=== PATIENT | male | born 1960 | race Caucasian/White ===

== ENCOUNTER 2021-05-25 08:12 | Emergency (ER) | payer OTHER, SELFPAY ==
[2021-05-25 08:13] VITALS: BP 134/69; BP 145/88; PULSE 68; PULSE 75; RESP 16; RESP 20; TEMP 36.8; O2SAT 100; BMI 27.4; BMI 30.8
--- NOTE | 2021-05-25 08:29 | [facility].EDGENADL ---
ED Disposition Clinical Impression: Lumbar disc herniation, Lumbar radiculopathy Disposition: Home, Self-Care Condition on Discharge: Good Instructions: DI for Herniated Disc, DI for Lumbar Radiculopathy Additional Instructions: Continue prednisone. Percocet as needed for pain. Follow-up with your primary care doctor when you return home, take your MRI disc with you. Additional instructions for CONTROLLED SUBSTANCES: You have been prescribed a medication that is a controlled substance. Controlled substances include pain medications known as opiates and sedative nerve medications known as benzodiazepines. Tramadol, fioricet, and gabapentin are also controlled substances. Some common opiates include: Codeine (such as Tylenol #3) Hydrocodone (Vicodin, Lortab, Lorcet, Galt) Oxycodone (Percocet, Percodan, Oxycodone, Oxy IR) Some common benzodiazepines include: Diazepam (Valium) Lorazepam (Ativan) Alprazolam (Xanax) Clonazepam (Klonopin) Oxazepam (Serax) All of these controlled substances are highly addictive and frequently abused. Misuse can and frequently does lead to addiction as well as overdose and . Medication should be stored in a locked cabinet or other secure storage unit. Do not store the medication in a motor vehicle. Short term supplies, 3 days or less, are prescribed because of the highly addictive nature of the medication. Any of the controlled substance medication NOT taken should be disposed of properly and NOT SAVED. The recommended method of disposing of unused medications is: Place the medicines in a sealable plastic bag. If the medicine is a solid, crush it or add water to dissolve it. Add something undesirable (cat litter, coffee grounds, etc.) Dispose of sealed bag in household trash Do not flush or pour unused medicines down a sink or drain. Controlled substances should not be shared, given away or sold. Because of the addictive nature and frequent abuse, these medications are sometimes stolen. These medications should be kept in a safe place where they cannot be stolen. Do not keep them in your car or purse. Lost or stolen prescriptions for controlled substances WILL NOT BE REFILLED in this emergency department, regardless of whether a police report was filed. Prescriptions: Oxycodone HCl/Acetaminophen [Percocet 5/325mg tablet] 1 tab PO Q6HP PRN #10 tablet PRN Reason: Moderate To Severe Pain Transmission Status: [facility] to [facility] Referrals: Provider,Referral, [Primary Care Provider] - - Critical Care Critical Care Time: No Attestation: On , the high probability of a clinically significant, sudden or life threatening deterioration of the following system(s) required my full and direct attention, intervention and personal management. The time I documented below is in addition to time spent performing reported procedures but includes the following listed in this critical care notation. Medical Decision Making - Nathen Inquiry Pt receiving controlled substance: Yes Nathen was queried for this patient: Yes Risks and benefits of using a controlled substance: were discussed with pt by me Vital Signs: 05/25/21 08:13 Temperature 98.3 F Temperature Source Oral Pulse Rate [Right Radial] 68 Pulse Rate [Right] 75 Respiratory Rate 16 Blood Pressure [Right Arm] 145/88 H Blood Pressure Mean [Right Arm] 107 Blood Pressure Source [Right Arm] Automatic Cuff Blood Pressure Position [Right Arm] Sitting 02 Sat by Pulse Oximetry 100 Oxygen Delivery Method Room Air - Lab Data Lab Results 05/25/21 09:23: WBC 9.9, RBC 4.25 L, Hgb 15.1, Hct 43.5, MCV 102.3 H, MCH 35.5 H, MCHC 34.7, RDW 15.4, Plt Count 193, MPV 8.9, Neut % (Auto) 91.1 H, Lymph % (Auto) 4.5 L, [place] % (Auto) 3.9, Eos % (Auto) 0.2, Baso % (Auto) 0.2, Neut # (Auto) 9.0 H, Lymph # (Auto) 0.5 L, [place] # (Auto) 0.4, Eos # (Auto) 0.0, Baso # (Auto) 0.0, Total Counted 100, Neutrophils % (Manu
--- NOTE | 2021-05-25 09:08 | PC.NURSE ---
Spoke with MRI staff. They advised they will be down to get pt around 1030 to have a MRI of the lumbar spine with and without contrast per Dr Roland request.
[2021-05-25 09:38] LABS: Basophils % 0.2 % (0.1-2.0); Chloride 104 mmol/L (98-107); Eosinophils % 0.2 % (0.1-12.0); Hematocrit 43.5 % (42.0-52.0); Hemoglobin 15.1 g/dL (14.1-18.0); Lymphocytes # 0.5 K/mm3 (0.7-4.5); Lymphocytes % 4.5 % (10-50); Mean Corpuscular HGB Conc 34.7 g/dL (31.8-35.4); Mean Corpuscular Hemoglobin 35.5 pg (27.0-31.2); Mean Corpuscular Volume 102.3 fl (80-94); Mean Platelet Volume 8.9 fl (7.4-10.4); Monocytes # 0.4 K/mm3 (0.1-1.0); Monocytes % 3.9 % (1.7-9.3); Neutrophils % 91.1 % (37.0-80.0); Platelet Count 193 K/mm3 (142-424); Red Blood Count 4.25 M/mm3 (4.60-6.20); Red Cell Distribution Width 15.4 % (11.5-17.5); Sodium 138 mmol/L (136-145); White Blood Count 9.9 K/mm3 (4.8-10.8)
[2021-05-25 09:39] LABS: MANUAL DIFFERENTIAL MANUAL DIFFERENTIAL (MANUAL DIFF); Potassium 3.9 mmoL/L (3.5-5.1)
[2021-05-25 09:42] LABS: Anion Gap 13.9 mEq/L (5-15); Blood Urea Nitrogen 11 mg/dl (9-20); Calcium 9.3 mg/dl (8.4-10.2); Carbon Dioxide 24 mmol/L (22.0-30.0); Creatinine Clearance Estimated 145 mL/min (50-200); Estimated Glomerular Filt Rate 138 ml/min (>60); GFR (African American) 167 ML/MIN (>60); Glucose 188 mg/dl (74-100)
[2021-05-25 09:47] LABS: C-Reactive Protein 2.9 mg/L (0-4)
--- NOTE | 2021-05-25 09:47 | MR_ITS ---
PROCEDURE: MR LUMBAR SPINE WO/W CON CLINICAL INDICATION: SCIATICA RT LEG Right leg pain and weakness, fever COMPARISON: No exams were available for comparison TECHNIQUE: Standard multiplanar multiecho sequences are performed without contrast. 3-D MIP and myelographic images are also rendered and reviewed FINDINGS: The normal alignment. The spinal cord ends at the L1-L2 level. L1-L2: Unremarkable. L2-L3: Unremarkable. L3-L4: Unremarkable. L4-5: The there is a medium sized right paracentral/medial foraminal disc herniation with superior extrusion. The herniated disc is extruded superiorly approximately 1.9 cm cephalad to the disc space. There is moderate compression upon the right L4 nerve root and mild compression upon the right L5 nerve root. There is severe right lateral recess narrowing and severe right-sided foraminal narrowing from the extruded herniated disc. There is mild bulging disc at L4-5 with facet and ligamentum hypertrophy with borderline canal stenosis. There is 3 mm anterolisthesis of L4 on L5 L5-S1: Minimal bulging disc. No evidence of epidural abscess. No abnormal enhancement apparent. IMPRESSION: 1. Medium sized right paracentral/medial foraminal disc herniation with superior extrusion the at L4-5. The herniated disc is extruded superiorly approximately 1.9 cm cephalad to the disc space. There is moderate compression upon the right L4 nerve root and mild compression upon the right L5 nerve root. There is severe right lateral recess narrowing and severe right-sided foraminal narrowing from the extruded herniated disc. There is mild bulging disc at L4-5 with facet and ligamentum hypertrophy with borderline canal stenosis. 2. No evidence of epidural abscess Dictated by: Yang Knott MD 05/25/2021 11:58 Yang Knott MD in [facility] 05/25/2021 11:58
[2021-05-25 09:57] LABS: Anisocytosis 1+; Lymphocytes % 8 % (10-50); Macrocytosis 1+; Monocytes % 3 % (2-9); Neutrophils % 89 % (42-76); Platelet Estimate Normal; Total Cells Counted 100
[2021-05-25 10:09] LABS: Erythrocyte Sedimentation Rate 10 mm/hr (0-20)
--- NOTE | 2021-05-25 10:25 | PC.NURSE ---
Pt going to MRI at this time
--- NOTE | 2021-05-25 11:50 | PC.NURSE ---
Pt returned from MRI
[2021-05-25 13:02] VITALS: BP 138/73; PULSE 73; RESP 18; TEMP -17.7; TEMP 0; O2SAT 98
== END 2021-05-25 13:05 | disposition home or self-care (01) ==
PROVIDERS: Emergency Provider Emergency Medicine
DX: M51.26 Other intervertebral disc displacement, lumbar region (principal); M54.16 Radiculopathy, lumbar region; Z94.4 Liver transplant status
CPT/HCPCS: 72158; 76376; 80048; 85007; 85025; 85651; 86140; 96374; 96375; 99282; A9576; J2405